=== PATIENT | male | born 1970 | race Two or more races ===

== ENCOUNTER 2025-06-10 13:35 | Emergency (ER) | payer OTHER ==
[~2025-06-10] VITALS: Ht 170.2 cm; Wt 81.6 kg
[2025-06-10] MEDS ORDERED: IMITREX100 MG PO (13:54)
[2025-06-10] MEDS ORDERED: KETOROLAC TROMETHAMINE 30 MG VIAL IM ONE (14:30)
[2025-06-10] MEDS ORDERED: CEFTRIAXONE SODIUM 1,000 MG VIAL IM ONE (14:30)
[2025-06-10] MEDS ORDERED: DICLOFENAC SODI50 MG PO (14:39)
[2025-06-10] MEDS ORDERED: AMOX-CLAV 875-1 EAC1 PO (14:39)
== END 2025-06-10 15:20 ==
LOC: ER 13:35
DX: H60.8X2 Other otitis externa, left ear (principal); Z88.8 Allergy status to other drugs, medicaments and biological substances; G43.809 Other migraine, not intractable, without status migrainosus